=== PATIENT | male | born 1945 | race Caucasian/White ===

== ENCOUNTER 2023-03-17 09:54 | Observation (INO) ==
[2023-03-17] MEDS ORDERED: ACETAMINOPHEN 1,000 MG/100 ML VIAL IV STA (10:22)
[2023-03-17] MEDS ORDERED: SODIUM CHLORIDE 0.9% 1000ML 2,000 ML IV ONE (10:22)
--- NOTE | 2023-03-17 10:23 | Emergency Department Note ---
Impression & Plan Anaplasmosis, Thrombocytopenia, Lymphopenia, Elevated erythrocyte sedimentation rate, CRP elevated ED Provider Note NAME: BENJAMIN DARBY AGE: 77 SEX: M ARRIVES VIA: Walk-In INFORMANT: Patient ED PROVIDER(S): Osbaldo Melendez MD CHIEF COMPLAINT: Fever, weakness, body aches. PLAN: Disposition: Admit MEDICAL DECISION MAKING: The patient is a pleasant 77-year-old gentleman with a past medical history of hypertension, hyperlipidemia who presents to the emergency department via walk- in, coming by his for evaluation of generalized body aches, chills with b ilateral shoulder and hip pain involving over the past week which continued to worsen where today he could not stand or walk due to the pain and sensation of weakness. He denies any known tick bites but does acknowledge [place] and so. He denies any cough or congestion, chest pain or shortness of breath, GI or symptoms. On arrival the patient is uncomfortable, febrile to 38.2 with heart in the 90s and vital signs otherwise stable. He appears clinically dry. He demonstrates generalized weakness without focal weakness. He has increased pain in bilateral hips and shoulders with decreased pain with passive range of motion. Reflexes within normal limits. No clonus. EKG without overt acute ischemia. Chest x-ray negative for acute cardiopulmonary process. WBC within normal limits albeit with lymphopenia of 0.60. Platelets also low at 121 K without recent for comparison. Hemoglobin within normal limits. Chemistry without metabolic acidosis. AST mildly elevated 59, nonspecific. CPK 749 consistent with the patient clinically dry appearance. ESR and CRP are elevated at 25 and 7.5, respectively which are nonspecific. Procalcitonin is elevated at 1.7. TSH within normal limits. Lipase not elevated. UA without evidence of infection though with 1+ ketones consistent with patient's clinical dry appearance. Respiratory viral panel/[employer] was negative. Lyme screen was negative. Anaplasma and Babesia smear were negative with DNA testing pending. Given the patient's lymphopenia and thrombocytopenia in addition to mildly elevated AST suspicion is raised for anaplasmosis as no alternate infectious etiology is identified. Patient was treated with empiric ceftriaxone as well as IV doxycycline. Upon evaluation patient was feeling significantly improved after IV fluid hydration, APAP, dexamethasone and while he still had generalized weakness and pain he was able to stand which he was unable to do prior. Both he and his agree with plan for admission for further management. [facility] who will evaluate the patient for admission. Triage Nursing notes reviewed and agree them. Prior/outside medical records reviewed Vital Signs: reviewed Differential diagnosis: Viral syndrome, otitis, pharyngitis, pneumonia, influenza, meningitis, urinary tract infection, sepsis, bacteremia, as well as other pathologies. ER treatment provided: See below. Diagnostics interpreted by me: ECG: Normal sinus rhythm, 92 bpm, nonspecific intraventricular conduction delay, no overt ST elevation or depression, QTc 440, QRS 120. Cardiac Monitoring: An order for continuous cardiac monitoring was placed and demonstrated normal sinus rhythm, 92 bpm, no ectopy. Laboratory studies: See below Imaging studies: See below Consultation(s): Case was discussed with Dr. Braden, [facility], who will evaluate the patient for admission. HPI: The patient is a pleasant 77-year-old gentleman with a past medical history of hypertension, hyperlipidemia who presents emergency department via walk-in, coming by his for evaluation of generalized body aches, chills with bilateral shoulder and hip pain involving over the past week which continued to worsen where today he could not stand or walk due to the pain and sensation of weakness. He denies any known tick bites but does acknowledge that [place] and so. He denies any cough or congestion, chest pain or shortness of breath, GI or symptoms. ROS: See above HPI for pertinent positives & negatives. A total of 10 systems reviewed and were otherwise negative. VITALS:See Below PHYSICAL EXAMINATION: GENERAL: Awake, alert, fatigued-appearing, in no distress HENT: Normocephalic, atraumatic. Oropharynx with dry mucous membranes. EYES: Normal conjunctiva. Sclera non-icteric. EOMI. No nystamgus. PEARRL. NECK: Supple. No nuchal rigidity. FROM. No JVD. RESPIRATORY: Clear to auscultation. CARDIAC: Regular rate, normal rhythm. Extremities warm and well perfused. Pulses equal. ABDOMEN: Soft, non-distended. No tenderness to palpation. No rebound or guardin g. No masses. RECTAL: Deferred. MUSCULOSKELETAL: Chest examination reveals no tenderness. The back is symmetrical on inspection without obvious abnormality. There is no CVA tenderness to palpation. No joint edema or warmth. LOWER EXTREMITIES: Calves are equal size bilaterally and non-tender. No edema. No discoloration. NEURO: No sensory or motor deficits noted. Generalized weakness without focal weakness. He has increased pain in bilateral hips and shoulders with decreased pain with passive range of motion. Reflexes within normal limits. No clonus. SKIN: No rash or jaundice noted. Osbaldo Melendez MD Past Med/Surg History Medical History (Updated 03/17/23 @ 17:51 by Tyra Braden MD) Dyslipidemia Menieres disease Primary hypertension Family History (Updated 03/17/23 @ 17:43 by Tyra Braden MD) Father Coronary heart disease Hypertension Mother Dementia Hypertension Social History (Updated 03/17/23 @ 17:42 by Tyra Braden MD) Smoking Status: Never smoker Hx Alcohol Use: No Hx Substance Use: No Preferred Language: Sammarinese Feels Safe at Home: Yes Allergies Allergies Allergy/AdvReac Type Severity Reaction Status Date / Time No Known Allergies Allergy Verified 10/20/02 15:34 [id number] Allergy Unknown Uncoded 10/20/02 16:06 N Allergy Unknown Uncoded 10/20/02 16:06 NFA Allergy Unknown Uncoded 10/20/02 16:06 NO Allergy Unknown Uncoded 10/20/02 16:06 Home Meds Home Medications Medication Instructions Recorded Confirmed Simvastatin (Zocor) 40 mg PO QPM ##0 08/23/10 03/17/23 acetaminophen 500 mg tablet 1,000 mg PO DAILY PRN Pain 03/17/23 03/17/23 aspirin 81 mg tablet,delayed 81 mg PO DAILY 03/17/23 03/17/23 release (Adult Low Dose Aspirin) hydrochlorothiazide 25 mg tablet 25 mg PO DAILY 03/17/23 03/17/23 losartan 25 mg tablet 25 mg PO DAILY 03/17/23 03/17/23 meclizine 25 mg tablet 25 mg PO DAILY PRN dizziness 03/17/23 03/17/23 multivitamin 1 tab PO QAM 03/17/23 03/17/23 vit C 250 mg-vit E 90 mg-zinc 40 1 cap PO QPM 03/17/23 03/17/23 mg-copper 1 [id number] capsule (PreserVision AREDS-2) Results & Data (ED) Vital Signs Vital Signs - 24 hr 03/17/23 10:00 03/17/23 11:00 03/17/23 12:00 Temperature 38.2 C H Temperature Source Oral Pulse Rate 97 H Pulse Rate [Right Finger] 73 Respiratory Rate 20 16 Respiratory Effort / Characteristics Non-Labored Spontaneous Non-Labored Respiratory Depth Normal Normal Respiratory Pattern Regular Regular Blood Pressure 116/74 Blood Pressure [Right Arm] Blood Pressure Mean 88 Blood Pressure Mean [Right Arm] Blood Pressure Position Sitting Blood Pressure Position [Right Arm] Pulse Oximetry 96 95 Oxygen Delivery Method Room Air Room Air Room Air Sepsis Recent Fever Within 48 Hours Yes Sepsis New/Unexplained Change in Mental Status No Sepsis Action Taken by Nursing No Action Required 03/17/23 13:26 03/17/23 15:13 03/17/23 17:00 Temperature 37.0 C Temperature Source Oral Pulse Rate Pulse Rate [Right Finger] 73 64 62 Respiratory Rate 16 16 18 Respiratory Effort / Characteristics Non-Labored Respiratory Depth Normal Respiratory Pattern Regular Blood Pressure Blood Pressure [Right Arm] 121/67 123/75 121/75 Blood Pressure Mean Blood Pressure Mean [Right Arm] 85 91 90 Blood Pressure Position Blood Pressure Position [Right Arm] Lying Pulse Oximetry 95 93 94 Oxygen Delivery Method Room Air Room Air Room Air Sepsis Recent Fever Within 48 Hours Sepsis New/Unexplained Change in Mental Status Sepsis Action Taken by Nursing Laboratory Data Attestation: I reviewed the patient's lab results. 03/17/23 10:22 03/17/23 10:22 Lab Results 03/17/23 03/17/23 03/17/23 Range/Units 10:22 10:22 10:22 WBC 5.28 (4.8-10.8) K/ul RBC 4.53 L (4.70-6.10) M/uL Hgb 14.0 (14.0-18.0) g/dl Hct 39.6 L (42.0-52.0) % MCV 87.4 (80.0-100.0) fL MCH 30.9 (25.0-34.0) pg MCHC 35.4 (32.0-36.0) g/dL RDW Std Deviation 42.8 (36.4-46.3) fL RDW Coeff of Vivek 13.3 (11.5-14.5) % Plt Count 121 L (130-400) K/uL MPV 8.5 L (9.4-12.4) fL Immature Gran % (Auto) 0.8 % Neut % (Auto) 77.4 % Lymph % (Auto) 11.4 % Owen % (Auto) 9.8 % Eos % (Auto) 0.2 % Baso % (Auto) 0.4 % Neut # (Auto) 4.09 (1.40-6.50) K/uL Lymph # (Auto) 0.60 L (1.2-3.4) K/uL Owen # (Auto) 0.52 (0.11-0.59) K/uL Eos # (Auto) 0.01 (0-0.50) K/uL Baso # (Auto) 0.02 (0-0.2) K/uL Immature Gran # (Auto) 0.04 (0.01-0.20) K/uL ESR (0-20) mm/hr PT 11.5 (9.0-12.0) Seconds INR 1.1 (0.9-1.1) Sodium 137 (136-145) mmol/L Potassium 3.6 (3.5-5.1) mmol/L Chloride 100 (98-107) mmol/L Carbon Dioxide 29 (21-32) mmol/L Anion Gap 8 (3-11) BUN 27 H (6-23) mg/dl Creatinine 1.11 (0.6-1.4) mg/dl Est Cr Clr Drug Dosing Not Reportable Est GFR ( Amer) 74.9 ml/min Est GFR (Non-Af Amer) 64.6 ml/min BUN/Creatinine Ratio 24.3 H (10-20) Glucose 119 H (70-99(Fasting)) mg/dl Lactate (0.4-2.0) mmol/L Calcium 8.8 (8.6-10.3) mg/dl Phosphorus 2.8 (2.5-4.9) mg/dl Magnesium 2.2 (1.7-2.4) mg/dl Total Bilirubin 0.9 (0.2-1.0) mg/dl AST 59 H (13-39) U/L ALT 52 (7-52) U/L Alkaline Phosphatase 68 (34-104) U/L Total Creatine Kinase 749 H (30-223) U/L Troponin I High Sens 15.5 (0-20) pg/ml C-Reactive Protein 7.54 H (0-0.5) mg/dl Total Protein 7.0 (6.0-8.3) gm/dl Albumin 4.3 (3.4-5.0) gm/dl Globulin 2.7 (2.5-4.0) gm/dl Albumin/Globulin Ratio 1.6 (0.9-2) Lipase 13 (11-82) U/L Procalcitonin (0-0.5) ng/ml TSH (0.300-4.500) uIu/ml Urine Color Urine Appearance (Clear) Urine pH (4.5-7.5) Ur Specific Montague (1.000-1.030) Urine Protein (Negative) Urine Glucose (UA) (Negative) Urine Ketones (Negative) Urine Blood (Negative) Urine Nitrite (Negative) Urine Bilirubin (Negative) Urine Urobilinogen (Negative) Ur Leukocyte Esterase (Negative) Urine WBC (Auto) (0-5) /hpf Urine RBC (Auto) (0-4) /hpf U Hyaline Cast (Auto) (0-5) /lpf U Epithel Cells (Auto) (0-5) /lpf Urine Bacteria (Auto) (Negative) Adenovirus (PCR) (NotDetected) Anaplasma Smear Babesia Smear B. pertussis DNA (PCR) (NotDetected) B.parapertussis DNA PCR (NotDetected) Lyme Disease IgG Ab (Negative) Lyme Disease IgM Ab (Negative) C. pneumoniae DNA (PCR) (NotDetected) Coronavirus OC43 (PCR) (NotDetected) Coronavirus HKU1 (PCR) (NotDetected) Coronavirus 229E (PCR) (NotDetected) SARS-CoV-2 (PCR) (NotDetected) Coronavirus NL63 (PCR) (NotDetected) Human Metapneumovir PCR (NotDetected) Influenza Type A (PCR) (NotDetected) Influenza Type B (PCR) (NotDetected) M. pneumoniae (PCR) (NotDetected) Parainfluenza 1 (PCR) (NotDetected) Parainfluenza 2 (PCR) (NotDetected) Parainfluenza 3 (PCR) (NotDetected) Parainfluenza 4 (PCR) (NotDetected) RSV (PCR) (NotDetected) Entero/Rhino (PCR) (NotDetected) 03/17/23 03/17/23 03/17/23 Range/Units 10:22 10:22 10:22 WBC (4.8-10.8) K/ul RBC (4.70-6.10) M/uL Hgb (14.0-18.0) g/dl Hct (42.0-52.0) % MCV (80.0-100.0) fL MCH (25.0-34.0) pg MCHC (32.0-36.0) g/dL RDW Std Deviation (36.4-46.3) fL RDW Coeff of Vivek (11.5-14.5) % Plt Count (130-400) K/uL MPV (9.4-12.4) fL Immature Gran % (Auto) % Neut % (Auto) % Lymph % (Auto) % Owen % (Auto) % Eos % (Auto) % Baso % (Auto) % Neut # (Auto) (1.40-6.50) K/uL Lymph # (Auto) (1.2-3.4) K/uL Owen # (Auto) (0.11-0.59) K/uL Eos # (Auto) (0-0.50) K/uL Baso # (Auto) (0-0.2) K/uL Immature Gran # (Auto) (0.01-0.20) K/uL ESR (0-20) mm/hr PT (9.0-12.0) Seconds INR (0.9-1.1) Sodium (136-145) mmol/L Potassium (3.5-5.1) mmol/L Chloride (98-107) mmol/L Carbon Dioxide (21-32) mmol/L Anion Gap (3-11) BUN (6-23) mg/dl Creatinine (0.6-1.4) mg/dl Est Cr Clr Drug Dosing Est GFR ( Amer) ml/min Est GFR (Non-Af Amer) ml/min BUN/Creatinine Ratio (10-20) Glucose (70-99(Fasting)) mg/dl Lactate (0.4-2.0) mmol/L Calcium (8.6-10.3) mg/dl Phosphorus (2.5-4.9) mg/dl Magnesium (1.7-2.4) mg/dl Total Bilirubin (0.2-1.0) mg/dl AST (13-39) U/L ALT (7-52) U/L Alkaline Phosphatase (34-104) U/L Total Creatine Kinase (30-223) U/L Troponin I High Sens (0-20) pg/ml C-Reactive Protein (0-0.5) mg/dl Total Protein (6.0-8.3) gm/dl Albumin (3.4-5.0) gm/dl Globulin (2.5-4.0) gm/dl Albumin/Globulin Ratio (0.9-2) Lipase (11-82) U/L Procalcitonin (0-0.5) ng/ml TSH 2.256 (0.300-4.500) uIu/ml Urine Color Urine Appearance (Clear) Urine pH (4.5-7.5) Ur Specific Montague (1.000-1.030) Urine Protein (Negative) Urine Glucose (UA) (Negative) Urine Ketones (Negative) Urine Blood (Negative) Urine Nitrite (Negative) Urine Bilirubin (Negative) Urine Urobilinogen (Negative) Ur Leukocyte Esterase (Negative) Urine WBC (Auto) (0-5) /hpf Urine RBC (Auto) (0-4) /hpf U Hyaline Cast (Auto) (0-5) /lpf U Epithel Cells (Auto) (0-5) /lpf Urine Bacteria (Auto) (Negative) Adenovirus (PCR) (NotDetected) Anaplasma Smear See Comment Babesia Smear See Comment B. pertussis DNA (PCR) (NotDetected) B.parapertussis DNA PCR (NotDetected) Lyme Disease IgG Ab Negative (Negative) Lyme Disease IgM Ab Negative (Negative) C. pneumoniae DNA (PCR) (NotDetected) Coronavirus OC43 (PCR) (NotDetected) Coronavirus HKU1 (PCR) (NotDetected) Coronavirus 229E (PCR) (NotDetected) SARS-CoV-2 (PCR) (NotDetected) Coronavirus NL63 (PCR) (NotDetected) Human Metapneumovir PCR (NotDetected) Influenza Type A (PCR) (NotDetected) Influenza Type B (PCR) (NotDetected) M. pneumoniae (PCR) (NotDetected) Parainfluenza 1 (PCR) (NotDetected) Parainfluenza 2 (PCR) (NotDetected) Parainfluenza 3 (PCR) (NotDetected) Parainfluenza 4 (PCR) (NotDetected) RSV (PCR) (NotDetected) Entero/Rhino (PCR) (NotDetected) 03/17/23 03/17/23 03/17/23 Range/Units 10:22 10:22 15:00 WBC (4.8-10.8) K/ul RBC (4.70-6.10) M/uL Hgb (14.0-18.0) g/dl Hct (42.0-52.0) % MCV (80.0-100.0) fL MCH (25.0-34.0) pg MCHC (32.0-36.0) g/dL RDW Std Deviation (36.4-46.3) fL RDW Coeff of Vivek (11.5-14.5) % Plt Count (130-400) K/uL MPV (9.4-12.4) fL Immature Gran % (Auto) % Neut % (Auto) % Lymph % (Auto) % Owen % (Auto) % Eos % (Auto) % Baso % (Auto) % Neut # (Auto) (1.40-6.50) K/uL Lymph # (Auto) (1.2-3.4) K/uL Owen # (Auto) (0.11-0.59) K/uL Eos # (Auto) (0-0.50) K/uL Baso # (Auto) (0-0.2) K/uL Immature Gran # (Auto) (0.01-0.20) K/uL ESR 25 H (0-20) mm/hr PT (9.0-12.0) Seconds INR (0.9-1.1) Sodium (136-145) mmol/L Potassium (3.5-5.1) mmol/L Chloride (98-107) mmol/L Carbon Dioxide (21-32) mmol/L Anion Gap (3-11) BUN (6-23) mg/dl Creatinine (0.6-1.4) mg/dl Est Cr Clr Drug Dosing Est GFR ( Amer) ml/min Est GFR (Non-Af Amer) ml/min BUN/Creatinine Ratio (10-20) Glucose (70-99(Fasting)) mg/dl Lactate 0.9 (0.4-2.0) mmol/L Calcium (8.6-10.3) mg/dl Phosphorus (2.5-4.9) mg/dl Magnesium (1.7-2.4) mg/dl Total Bilirubin (0.2-1.0) mg/dl AST (13-39) U/L ALT (7-52) U/L Alkaline Phosphatase (34-104) U/L Total Creatine Kinase (30-223) U/L Troponin I High Sens (0-20) pg/ml C-Reactive Protein (0-0.5) mg/dl Total Protein (6.0-8.3) gm/dl Albumin (3.4-5.0) gm/dl Globulin (2.5-4.0) gm/dl Albumin/Globulin Ratio (0.9-2) Lipase (11-82) U/L Procalcitonin 1.73 H (0-0.5) ng/ml TSH (0.300-4.500) uIu/ml Urine Color Urine Appearance (Clear) Urine pH (4.5-7.5) Ur Specific Montague (1.000-1.030) Urine Protein (Negative) Urine Glucose (UA) (Negative) Urine Ketones (Negative) Urine Blood (Negative) Urine Nitrite (Negative) Urine Bilirubin (Negative) Urine Urobilinogen (Negative) Ur Leukocyte Esterase (Negative) Urine WBC (Auto) (0-5) /hpf Urine RBC (Auto) (0-4) /hpf U Hyaline Cast (Auto) (0-5) /lpf U Epithel Cells (Auto) (0-5) /lpf Urine Bacteria (Auto) (Negative) Adenovirus (PCR) (NotDetected) Anaplasma Smear Babesia Smear B. pertussis DNA (PCR) (NotDetected) B.parapertussis DNA PCR (NotDetected) Lyme Disease IgG Ab (Negative) Lyme Disease IgM Ab (Negative) C. pneumoniae DNA (PCR) (NotDetected) Coronavirus OC43 (PCR) (NotDetected) Coronavirus HKU1 (PCR) (NotDetected) Coronavirus 229E (PCR) (NotDetected) SARS-CoV-2 (PCR) (NotDetected) Coronavirus NL63 (PCR) (NotDetected) Human Metapneumovir PCR (NotDetected) Influenza Type A (PCR) (NotDetected) Influenza Type B (PCR) (NotDetected) M. pneumoniae (PCR) (NotDetected) Parainfluenza 1 (PCR) (NotDetected) Parainfluenza 2 (PCR) (NotDetected) Parainfluenza 3 (PCR) (NotDetected) Parainfluenza 4 (PCR) (NotDetected) RSV (PCR) (NotDetected) Entero/Rhino (PCR) (NotDetected) 03/17/23 03/17/23 Range/Units 16:00 Unknown WBC (4.8-10.8) K/ul RBC (4.70-6.10) M/uL Hgb (14.0-18.0) g/dl Hct (42.0-52.0) % MCV (80.0-100.0) fL MCH (25.0-34.0) pg MCHC (32.0-36.0) g/dL RDW Std Deviation (36.4-46.3) fL RDW Coeff of Vivek (11.5-14.5) % Plt Count (130-400) K/uL MPV (9.4-12.4) fL Immature Gran % (Auto) % Neut % (Auto) % Lymph % (Auto) % Owen % (Auto) % Eos % (Auto) % Baso % (Auto) % Neut # (Auto) (1.40-6.50) K/uL Lymph # (Auto) (1.2-3.4) K/uL Owen # (Auto) (0.11-0.59) K/uL Eos # (Auto) (0-0.50) K/uL Baso # (Auto) (0-0.2) K/uL Immature Gran # (Auto) (0.01-0.20) K/uL ESR (0-20) mm/hr PT (9.0-12.0) Seconds INR (0.9-1.1) Sodium (136-145) mmol/L Potassium (3.5-5.1) mmol/L Chloride (98-107) mmol/L Carbon Dioxide (21-32) mmol/L Anion Gap (3-11) BUN (6-23) mg/dl Creatinine (0.6-1.4) mg/dl Est Cr Clr Drug Dosing Est GFR ( Amer) ml/min Est GFR (Non-Af Amer) ml/min BUN/Creatinine Ratio (10-20) Glucose (70-99(Fasting)) mg/dl Lactate (0.4-2.0) mmol/L Calcium (8.6-10.3) mg/dl Phosphorus (2.5-4.9) mg/dl Magnesium (1.7-2.4) mg/dl Total Bilirubin (0.2-1.0) mg/dl AST (13-39) U/L ALT (7-52) U/L Alkaline Phosphatase (34-104) U/L Total Creatine Kinase (30-223) U/L Troponin I High Sens (0-20) pg/ml C-Reactive Protein (0-0.5) mg/dl Total Protein (6.0-8.3) gm/dl Albumin (3.4-5.0) gm/dl Globulin (2.5-4.0) gm/dl Albumin/Globulin Ratio (0.9-2) Lipase (11-82) U/L Procalcitonin (0-0.5) ng/ml TSH (0.300-4.500) uIu/ml Urine Color Yellow Urine Appearance Clear (Clear) Urine pH 5.5 (4.5-7.5) Ur Specific Montague 1.014 (1.000-1.030) Urine Protein Negative (Negative) Urine Glucose (UA) Negative (Negative) Urine Ketones 1+ H (Negative) Urine Blood Trace H (Negative) Urine Nitrite Negative (Negative) Urine Bilirubin Negative (Negative) Urine Urobilinogen Negative (Negative) Ur Leukocyte Esterase Negative (Negative) Urine WBC (Auto) 1-5 (0-5) /hpf Urine RBC (Auto) 0-4 (0-4) /hpf U Hyaline Cast (Auto) 0 (0-5) /lpf U Epithel Cells (Auto) 0-5 (0-5) /lpf Urine Bacteria (Auto) Negative (Negative) Adenovirus (PCR) Not Detected (NotDetected) Anaplasma Smear Babesia Smear B. pertussis DNA (PCR) Not Detected (NotDetected) B.parapertussis DNA PCR Not Detected (NotDetected) Lyme Disease IgG Ab (Negative) Lyme Disease IgM Ab (Negative) C. pneumoniae DNA (PCR) Not Detected (NotDetected) Coronavirus OC43 (PCR) Not Detected (NotDetected) Coronavirus HKU1 (PCR) Not Detected (NotDetected) Coronavirus 229E (PCR) Not Detected (NotDetected) SARS-CoV-2 (PCR) Not Detected (NotDetected) Coronavirus NL63 (PCR) Not Detected (NotDetected) Human Metapneumovir PCR Not Detected (NotDetected) Influenza Type A (PCR) Not Detected (NotDetected) Influenza Type B (PCR) Not Detected (NotDetected) M. pneumoniae (PCR) Not Detected (NotDetected) Parainfluenza 1 (PCR) Not Detected (NotDetected) Parainfluenza 2 (PCR) Not Detected (NotDetected) Parainfluenza 3 (PCR) Not Detected (NotDetected) Parainfluenza 4 (PCR) Not Detected (NotDetected) RSV (PCR) Not Detected (NotDetected) Entero/Rhino (PCR) Not Detected (NotDetected) Administered Medications Discontinued Medications Dexamethasone Sodium Phosphate (DexamethasonePf 10 Mg/Ml Vial) 10 mg IV NOW ONE Stop: 03/17/23 10:56 Last Admin: 03/17/23 11:13 Dose: 10 mg Documented By: KAY Sodium Chloride (Nss 1000ml) 2,000 mls @ 999 mls/hr IV .Q2H1M ONE Stop: 03/17/23 12:22 Last Infusion: 03/17/23 13:28 Dose: 0 mls/hr Documented By: Admin: 03/17/23 11:13 Dose: 999 mls/hr Documented By: KAY Acetaminophen (Ofirmev) 1,000 mg in 100 mls @ 400 mls/hr IV NOW STA Stop: 03/17/23 10:36 Last Infusion: 03/17/23 11:39 Dose: 0 mls/hr Documented By: Admin: 03/17/23 11:12 Dose: 400 mls/hr Documented By: KAY Ceftriaxone Sodium (Rocephin) 2,000 mg in 70 mls @ 140 mls/hr IV NOW STA Stop: 03/17/23 14:31 Last Infusion: 03/17/23 15:51 Dose: 0 mls/hr Documented By: Admin: 03/17/23 15:19 Dose: 140 mls/hr Documented By: EDITH Doxycycline Hyclate 100 mg/ (Dextrose) 110 mls @ 50 mls/hr IV NOW STA Stop: 03/17/23 16:13 Last Infusion: 03/17/23 17:48 Dose: 0 mls/hr Documented By: Admin: 03/17/23 15:52 Dose: 50 mls/hr Documented By: EDITH Imaging Data Radiologist's Impression: Chest X-Ray 03/17/23 10:21 XR chest 1V portable CLINICAL HISTORY: weakness TECHNIQUE: Single frontal radiograph of the chest was obtained. Comparison: None available at the time of this dictation. FINDINGS: No lines and tubes are seen. The cardiomediastinal silhouette is normal. Lungs are underinflated but clear. No evidence of pleural effusion or pneumothorax. IMPRESSION: No acute chest disease. ACT 112: Negative or not required by law. Electronically signed by: Pierre Mcgee M.D. 03/17/2023 10:42 AM Discharge Plan Visit Data Chief Complaint: Fever Stated Complaint: CHILLS;HOT;MUSCLE SORENESS; FEVER ED Provider: Osbaldo Melendez Discharge Problem: Anaplasmosis, Thrombocytopenia, Lymphopenia, Elevated erythrocyte sedimentation rate, CRP elevated Forms Stand Alone Forms: My [facility] Prescriptions Prescriptions: No Action Simvastatin (Zocor) 40 MG tablet 40 mg PO QPM Qty: 0 multivitamin [Multi-Vitamin] Tablet 1 tab PO QAM aspirin [Adult Low Dose Aspirin] 81 mg tablet,delayed release (DR/EC) 81 mg PO DAILY acetaminophen [Tylenol Ex Str Rapid Release] 500 mg Tablet 1,000 mg PO DAILY PRN (Reason: Pain) meclizine 25 mg tablet 25 mg PO DAILY PRN (Reason: dizziness) losartan 25 mg tablet 25 mg PO DAILY hydrochlorothiazide 25 mg tablet 25 mg PO DAILY PreserVision AREDS-2 250-90-40-1 mg Capsule 1 cap PO QPM Referrals Referrals: PCP,NO [Physician] -
--- NOTE | 2023-03-17 10:44 | XRay Report ---
XR chest 1V portable CLINICAL HISTORY: weakness TECHNIQUE: Single frontal radiograph of the chest was obtained. Comparison: None available at the time of this dictation. FINDINGS: No lines and tubes are seen. The cardiomediastinal silhouette is normal. Lungs are underinflated but clear. No evidence of pleural effusion or pneumothorax. IMPRESSION: No acute chest disease. ACT 112: Negative or not required by law. Electronically signed by: Pierre Mcgee M.D. 03/17/2023 10:42 AM
[2023-03-17 10:54] LABS: Basophils # (auto) 0.02 K/uL (0-0.2); Basophils % (auto) 0.4 %; Eosinophils # (auto) 0.01 K/uL (0-0.50); Eosinophils % (auto) 0.2 %; Hematocrit (blood only) 39.6 % (42.0-52.0); Immature Granulocytes # (auto) 0.04 K/uL (0.01-0.20); Immature Granulocytes % (auto) 0.8 %; Lymphocytes % (auto) 11.4 %; Mean Corpuscular Hemoglobin 30.9 pg (25.0-34.0); Mean Corpuscular Hgb Conc 35.4 g/dL (32.0-36.0); Mean Corpuscular Volume 87.4 fL (80.0-100.0); Mean Platelet Volume 8.5 fL (9.4-12.4); Monocytes # (auto) 0.52 K/uL (0.11-0.59); Monocytes % (auto) 9.8 %; Neutrophils # (auto) 4.09 K/uL (1.40-6.50); Neutrophils % (auto) 77.4 %; Platelet Count 121 K/uL (130-400); RDW Coefficient of Variation 13.3 % (11.5-14.5); RDW Standard Deviation 42.8 fL (36.4-46.3); Red Blood Count 4.53 M/uL (4.70-6.10); White Blood Count 5.28 K/ul (4.8-10.8)
[2023-03-17] MEDS ORDERED: dexAMETHasone**PF** 10 MG/ML VIAL IV ONE (10:55)
[2023-03-17 11:10] LABS: Alanine Aminotransferase 52 U/L (7-52); Albumin Globulin Ratio 1.6 (0.9-2); Albumin Level 4.3 gm/dl (3.4-5.0); Alkaline Phosphatase 68 U/L (34-104); Anion Gap 8 (3-11); Aspartate Aminotransferase 59 U/L (13-39); BUN Creatinine Ratio 24.3 (10-20); Bilirubin,Total 0.9 mg/dl (0.2-1.0); Blood Urea Nitrogen 27 mg/dl (6-23); Calcium 8.8 mg/dl (8.6-10.3); Carbon Dioxide 29 mmol/L (21-32); Chloride 100 mmol/L (98-107); Creatine Kinase 749 U/L (30-223); Est GFR (African American) 74.9 ml/min; Est GFR (Non-African American) 64.6 ml/min; Globulin 2.7 gm/dl (2.5-4.0); Glucose 119 mg/dl (70-99(Fasting)); Lipase 13 U/L (11-82); Magnesium 2.2 mg/dl (1.7-2.4); Phosphorus 2.8 mg/dl (2.5-4.9); Potassium 3.6 mmol/L (3.5-5.1); Sodium 137 mmol/L (136-145)
[2023-03-17 11:16] LABS: Troponin I High Sensitivity 15.5 pg/ml (0-20)
[2023-03-17 11:20] LABS: INR 1.1 (0.9-1.1); Prothrombin Time 11.5 Seconds (9.0-12.0)
[2023-03-17 11:40] LABS: Lyme Ab IgG w/WB Rflx Negative (Negative); Lyme Ab IgM w/WB Rflx Negative (Negative)
[2023-03-17 11:52] LABS: C Reactive Protein 7.54 mg/dl (0-0.5)
[2023-03-17 12:39] LABS: Adenovirus PCR Not Detected (NotDetected); Bordetella parapertussis PCR Not Detected (NotDetected); Bordetella pertussis PCR Not Detected (NotDetected); Chlamydia pneumoniae PCR Not Detected (NotDetected); Coronavirus 229E PCR Not Detected (NotDetected); Coronavirus CoV-2 (COVID19)PCR Not Detected (NotDetected); Coronavirus HKU1 PCR Not Detected (NotDetected); Coronavirus NL63 PCR Not Detected (NotDetected); Coronavirus OC43PCR Not Detected (NotDetected); Human Metapneumovirus PCR Not Detected (NotDetected); Influenza A PCR Not Detected (NotDetected); Influenza B PCR Not Detected (NotDetected); Mycoplasma pneumoniae PCR Not Detected (NotDetected); Parainfluenza Virus 1 PCR Not Detected (NotDetected); Parainfluenza Virus 2 PCR Not Detected (NotDetected); Parainfluenza Virus 3 PCR Not Detected (NotDetected); Parainfluenza Virus 4 PCR Not Detected (NotDetected); Respiratory Syncytial VirusPCR Not Detected (NotDetected); Rhinovirus/Enterovirus PCR Not Detected (NotDetected)
[2023-03-17] MEDS ORDERED: cefTRIAXone SODIUM 2,000 MG/70 ML BAG IV STA (14:02)
[2023-03-17] MEDS ORDERED: DOXYCYCLINE HYCLATE 100 MG in DEXTROSE 5% 100 ML IV STA (14:02)
[2023-03-17 16:12] LABS: Appearance Urine Clear (Clear); Bacteria Urine Automated Negative (Negative); Bilirubin Urine Negative (Negative); Blood Urine Trace (Negative); Cast Urine Automated 0 /lpf (0-5); Color Urine Yellow; Epithelial Cell Urine Auto 0-5 /lpf (0-5); Glucose Urine UA Negative (Negative); Ketones Urine 1+ (Negative); Leukocyte Esterase Urine Negative (Negative); Nitrite Urine Negative (Negative); Protein Urine Negative (Negative); RBC Urine Automated 0-4 /hpf (0-4); Specific Gravity Urine 1.014 (1.000-1.030); Urobilinogen Urine Negative (Negative); pH Urine 5.5 (4.5-7.5)
--- NOTE | 2023-03-17 17:39 | History & Physical Report ---
Date of Service March 17, 2023 Assessment & Plan (1) Systemic inflammatory response syndrome (SIRS) without organ dysfunction: Plan: at presentation HR > 90, T > 38 C suspected infectious etiology making this sepsis no e/o significant end organ damage (mild elevated of AST) ESR, CRP, CK, procalcitonin elevated CXR neg, UA clean f/u DNA for Anaplasma and Babesia, continue empiric coverage for now with Ceftriaxone and Doxycycline Tickborne panel neg thus far including smear for Anaplasma and Babesia if pt does not respond to therapy consider ID consult Present on Admission?: Yes (2) Weakness generalized: Plan: in part due to diffuse pain continue tx as above under SIRS continue supportive care, IVF, steroids if no improvement then consult to PT Present on Admission?: Yes (3) Thrombocytopenia: Plan: monitor, likely related to infection transfuse for plt < 15 without bleeding, < 50 with bleeding Present on Admission?: Yes (4) Dyslipidemia: Plan: continue statin, no indication to check a lipid panel Present on Admission?: Yes (5) Primary hypertension: Plan: currently well controlled, initially with soft BP that improved with IVF hold home regimen for now, resume when indicated home meds are HCTZ 25 mg daily, Losartan 25 mg daily Present on Admission?: Yes (6) Menieres disease: Plan: no complaints at this time meclizine prn Present on Admission?: Yes History of Present Illness Chief Complaint: fever, weakness, arthralgias Primary Care Provider: Larry James MD Ms. Bower is a 77 year old male with pmhx (per chart and ) of HTN, HLP, Meniere's dz, and periodic limb movement disorder. He presents with about a week of worsening diffuse arthralgias and weakness. He is found to have SIRS of susp ected infectious etiology. Hx is per pt and at bedside. Symptoms began about a week ago with f/c and sweats. He developed generalized weakness and diffuse arthralgias that are worst in the left knee and hip. Pain is so severe it is making ambulation difficult. Pain improves with rest and is worse with weight bearing and activity. He has not noticed any joint swelling or rash. He denies associated GARCIA, confusion, change in vision, dizziness, lightheadedness, neck pain/stiffness, focal weakness, numbness and tingling, n/v, cough, congestion, rhinorrhea, sore throat, CP, sob, dyspnea, abdominal pain, dysuria, and diarrhea. His does not notice any other changes. He has not noticed any insect bites or rash [place]. ED Course: vs notable for T 38.2, HR 97. b/w notable for plt 121, BUN 27, AST 59, remaining cbc/cmp unimpressive/wnl. TSH wnl. lactate 0.9. UA neg. CK elevated at 749, ESR 25, CRP 7.54. Procalcitonin 1.73 Tick born panel negative including smear for Anaplasmosis and Babesia however DNA for Anaplasma and Babesia is pending. CXR neg for acute pathology Pt given Dexamethasone, Azithromycin, Doxycycline, and IVF. Admitted to hospitalist service. Allergies Allergy/AdvReac Type Severity Reaction Status Date / Time No Known Allergies Allergy Verified 10/20/02 15:34 [id number] Allergy Unknown Uncoded 10/20/02 16:06 N Allergy Unknown Uncoded 10/20/02 16:06 NFA Allergy Unknown Uncoded 10/20/02 16:06 NO Allergy Unknown Uncoded 10/20/02 16:06 Home Medications Medication Instructions Recorded Confirmed Type Simvastatin (Zocor) 40 mg PO QPM ##0 08/23/10 03/17/23 History acetaminophen 500 mg tablet 1,000 mg PO DAILY PRN Pain 03/17/23 03/17/23 History aspirin 81 mg tablet,delayed 81 mg PO DAILY 03/17/23 03/17/23 History release (Adult Low Dose Aspirin) hydrochlorothiazide 25 mg tablet 25 mg PO DAILY 03/17/23 03/17/23 History losartan 25 mg tablet 25 mg PO DAILY 03/17/23 03/17/23 History meclizine 25 mg tablet 25 mg PO DAILY PRN dizziness 03/17/23 03/17/23 History multivitamin 1 tab PO QAM 03/17/23 03/17/23 History vit C 250 mg-vit E 90 mg-zinc 40 1 cap PO QPM 03/17/23 03/17/23 History mg-copper 1 [id number] capsule (PreserVision AREDS-2) Past Med/Surg History Medical History (Updated 03/17/23 @ 17:51 by Tyra Braden MD) Dyslipidemia Menieres disease Primary hypertension Family History (Updated 03/17/23 @ 17:43 by Tyra Braden MD) Father Coronary heart disease Hypertension Mother Dementia Hypertension Social History (Updated 03/17/23 @ 17:42 by Tyra Braden MD) Smoking Status: Never smoker Hx Alcohol Use: No Hx Substance Use: No Preferred Language: Panamanian Feels Safe at Home: Yes Review of Systems Review of Systems: All systems reviewed & are unremarkable except as noted in HPI & below Physical Exam Physical Exam: General: NAD, well nourished, non-toxic appearing Head: NC AT Eyes: PERRL, EOMI, anicteric sclera, no conjunctival injection Nose: normal, nares patent Mouth: dry Neck: supple, trachea midline CV: RRR S1 S2 Pulm: CTA b/l Abd/GI: + BS, soft, NT, ND, no guarding : no garay Ext: no pretibial edema, peripheral pulses intact MSK: normal bulk and tone Neuro: grossly intact, moving all 4 extremities symmetrically, alert, oriented, no focal deficit Psych: pleasant mood and affect Skin: visible skin is warm, dry, and without rash. Pt not fully undressed for exam. Results & Data Results & Data Vital Signs (Past 12 Hours) Vital Signs Temp Pulse Pulse Resp BP BP Pulse Ox 03/17/23 17:00 62 18 121/75 94 03/17/23 15:13 64 16 123/75 93 03/17/23 13:26 37.0 C 73 16 121/67 95 03/17/23 12:00 73 16 95 03/17/23 11:00 03/17/23 10:00 38.2 C H 97 H 20 116/74 96 O2 Del Method 03/17/23 17:00 Room Air 03/17/23 15:13 Room Air 03/17/23 13:26 Room Air 03/17/23 12:00 Room Air 03/17/23 11:00 Room Air 03/17/23 10:00 Room Air Laboratory Results Short CBC 03/17/23 Range/Units 10:22 WBC 5.28 (4.8-10.8) K/ul Hgb 14.0 (14.0-18.0) g/dl Hct 39.6 L (42.0-52.0) % Plt Count 121 L (130-400) K/uL BMP 03/17/23 10:22 Sodium 137 Potassium 3.6 Chloride 100 Carbon Dioxide 29 BUN 27 H Creatinine 1.11 Glucose 119 H Calcium 8.8 Cardiac Enzymes 03/17/23 Range/Units 10:22 Total Creatine Kinase 749 H (30-223) U/L Liver Function 03/17/23 Range/Units 10:22 Total Bilirubin 0.9 (0.2-1.0) mg/dl AST 59 H (13-39) U/L ALT 52 (7-52) U/L Alkaline Phosphatase 68 (34-104) U/L Albumin 4.3 (3.4-5.0) gm/dl Urine 03/17/23 Range/Units 16:00 Urine Color Yellow Urine Appearance Clear (Clear) Urine pH 5.5 (4.5-7.5) Ur Specific Everly 1.014 (1.000-1.030) Urine Protein Negative (Negative) Urine Glucose (UA) Negative (Negative) Diagnostic Findings Chest X-Ray 03/17/23 10:21 XR chest 1V portable FINDINGS: No lines and tubes are seen. The cardiomediastinal silhouette is normal. Lungs are underinflated but clear. No evidence of pleural effusion or pneumothorax. IMPRESSION: No acute chest disease. Electronically signed by: Pierre Mcgee M.D. 03/17/2023 10:42 AM Code Status & VTE Plan Code Status full
[2023-03-17] MEDS ORDERED: ALUMINUM/MAGNESIUM SUSP 30 ML UDC PO PRN (17:51)
[2023-03-17] MEDS ORDERED: ONDANSETRON INJ 2 MG/ML 2 ML VIAL IV PRN (17:51)
[2023-03-17] MEDS ORDERED: POLYETHYLENE (MIRALAX) 17 GM PACK PO PRN (17:51)
[2023-03-17] MEDS ORDERED: MAGNESIUM HYDROXIDE SUSP 30 ML UDC PO PRN (17:51)
[2023-03-17] MEDS ORDERED: ACETAMINOPHEN 325 MG TAB PO PRN (17:51)
[2023-03-17] MEDS ORDERED: MECLIZINE HCL 25 MG TAB PO PRN (17:54)
--- NOTE | 2023-03-17 17:57 | Electrocardiogram Report ---
Test Reason : Blood Pressure : / mmHG Vent. Rate : 092 BPM Atrial Rate : 092 BPM P-R Int : 176 ms QRS Dur : 120 ms QT Int : 356 ms P-R-T Axes : 065 000 046 degrees QTc Int : 440 ms Normal sinus rhythm Right bundle branch block Borderline ECG When compared with ECG of 15-MAR-2002 11:56, Questionable change in QRS axis Confirmed by Daniel Carrasco ([id number]) on 03/17/2023 5:56:28 PM Referred By: Confirmed By:Chuck Carrasco
[2023-03-17] MEDS ORDERED: SIMVASTATIN 40 MG TAB PO SCH (21:00)
[2023-03-17] MEDS ORDERED: ENOXAPARIN INJ 40 MG/0.4 ML SYR SQ SCH (21:00)
[2023-03-17] MEDS: DOXYCYCLINE HYCLATE 100 MG CAP PO SCH (21:39)
[2023-03-18 07:12] LABS: Basophils # (auto) 0.01 K/uL (0-0.2); Basophils % (auto) 0.2 %; Hematocrit (blood only) 36.6 % (42.0-52.0); Hemoglobin 13.3 g/dl (14.0-18.0); Immature Granulocytes # (auto) 0.03 K/uL (0.01-0.20); Immature Granulocytes % (auto) 0.5 %; Lymphocytes # (auto) 0.83 K/uL (1.2-3.4); Lymphocytes % (auto) 13.6 %; Mean Corpuscular Hemoglobin 31.2 pg (25.0-34.0); Mean Corpuscular Hgb Conc 36.3 g/dL (32.0-36.0); Mean Corpuscular Volume 85.9 fL (80.0-100.0); Mean Platelet Volume 8.5 fL (9.4-12.4); Monocytes # (auto) 0.63 K/uL (0.11-0.59); Monocytes % (auto) 10.3 %; Neutrophils # (auto) 4.62 K/uL (1.40-6.50); Neutrophils % (auto) 75.4 %; Platelet Count 118 K/uL (130-400); RDW Coefficient of Variation 13.1 % (11.5-14.5); RDW Standard Deviation 41.1 fL (36.4-46.3); Red Blood Count 4.26 M/uL (4.70-6.10); White Blood Count 6.12 K/ul (4.8-10.8)
[2023-03-18 07:38] LABS: Albumin Globulin Ratio 1.6 (0.9-2); Albumin Level 3.7 gm/dl (3.4-5.0); Bilirubin,Total 0.6 mg/dl (0.2-1.0); Calcium 8.2 mg/dl (8.6-10.3); Creatinine Clr Calc Pharmacy 90.6 ml/min; Est GFR (Non-African American) 89.7 ml/min; Globulin 2.3 gm/dl (2.5-4.0); Potassium 3.3 mmol/L (3.5-5.1)
[2023-03-18] MEDS: DOXYCYCLINE HYCLATE 100 MG CAP PO SCH (08:11)
[2023-03-18] MEDS ORDERED: ASPIRIN 81 MG ECTAB PO SCH (09:00)
[2023-03-18] MEDS ORDERED: POTASSIUM CHLORIDE CRTAB 20 MEQ TABCR PO STA (09:53)
--- NOTE | 2023-03-18 14:39 | Discharge Summary ---
Date of Service March 18, 2023 Admission HPI Per Admitting Provider Ms. Bower is a 77 year old male with pmhx (per chart and ) of HTN, HLP, Meniere's dz, and periodic limb movement disorder. He presents with about a week of worsening diffuse arthralgias and weakness. He is found to have SIRS of suspected infectious etiology. Hx is per pt and at bedside. Symptoms began about a week ago with f/c and sweats. He developed generalized weakness and diffuse arthralgias that are worst in the left knee and hip. Pain is so severe it is making ambulation difficult. Pain improves with rest and is worse with weight bearing and activity. He has not noticed any joint swelling or rash. He denies associated GARCIA, confusion, change in vision, dizziness, lightheadedness, neck pain/stiffness, focal weakness, numbness and tingling, n/v, cough, congestion, rhinorrhea, sore throat, CP, sob, dyspnea, abdominal pain, dysuria, and diarrhea. His does not notice any other changes. He has not noticed any insect bites or rash [place]. ED Course: vs notable for T 38.2, HR 97. b/w notable for plt 121, BUN 27, AST 59, remaining cbc/cmp unimpressive/wnl. TSH wnl. lactate 0.9. UA neg. CK elevated at 749, ESR 25, CRP 7.54. Procalcitonin 1.73 Tick born panel negative including smear for Anaplasmosis and Babesia however DNA for Anaplasma and Babesia is pending. CXR neg for acute pathology Pt given Dexamethasone, Azithromycin, Doxycycline, and IVF. Admitted to spitalist service. Admission Exam Per Admitting Provider General:NAD, well nourished, non-toxic appearing Head:NC AT Eyes: PERRL, EOMI, anicteric sclera, no conjunctival injection Nose:normal, nares patent Mouth:dry Neck:supple, trachea midline CV:RRR S1 S2 Pulm:CTA b/l Abd/GI:+ BS, soft, NT, ND, no guarding :no garay Ext:no pretibial edema, peripheral pulses intact MSK:normal bulk and tone Neuro:grossly intact, moving all 4 extremities symmetrically, alert, oriented, no focal deficit Psych:pleasant mood and affect Skin:visible skin is warm, dry, and without rash. Pt not fully undressed for exam. Principal Diagnosis SIRS without organ dysfunction Generalized weakness associated with diffuse arthralgia Discharge Exam GENERAL: Alert and oriented x3. NAD, on RA. HEENT: No pallor, no icterus. Pupils equal, round and reactive to light. Oral mucosa moist. NECK: No JVD, no neck masses. HEART: S1 and S2 heard. Regular rate and rhythm. No murmur, no gallop. RESPIRATORY SYSTEM: Normal AP diameter. No accessory muscle use. No wheezing, no crackles. ABDOMEN: Soft, bowel sounds present, nontender, no distention. CENTRAL NERVOUS SYSTEM: No facial droop. Speech is clear. Obeys simple commands. Moves extremities. EXTREMITIES: No edema, no erythema seen. Discharge Data Allergies Allergy/AdvReac Type Severity Reaction Status Date / Time No Known Allergies Allergy Verified 10/20/02 15:34 Consultations 03/17/23 16:24 ED Decision to Admit Stat Hospital Course (1) Systemic inflammatory response syndrome (SIRS) without organ dysfunction: Per prior attending w/ addendum: 1. SIRS without organ dysfunction: Possible anaplasmosis: at presentation HR > 90, T > 38 C suspected infectious etiology making this sepsis no e/o significant end organ damage (mild elevated of AST) ESR, CRP, CK, procalcitonin elevated CXR neg, UA clean f/u DNA for Anaplasma and Babesia, continue empiric coverage for now with Ceftriaxone and Doxycycline Tickborne panel neg thus far including smear for Anaplasma and Babesia if pt does not respond to therapy consider ID consult (2) Weakness generalized: in part due to diffuse pain continue tx as above under SIRS continue supportive care, IVF, steroids if no improvement then consult to PT (3) Thrombocytopenia: monitor, likely related to infection transfuse for plt < 15 without bleeding, < 50 with bleeding (4) Dyslipidemia: continue statin, no indication to check a lipid panel (5) Primary hypertension: currently well controlled, initially with soft BP that improved with IVF hold home regimen for now, resume when indicated home meds are HCTZ 25 mg daily, Losartan 25 mg daily (6) Menieres disease: no complaints at this time meclizine prn Plan Addendum: Patient reports feeling better, reports improvement in his generalized weakness and improvement in his generalized arthralgia. Patient is hemodynamically stable, no further fever, would like to go home. Discussed with the patient that his all the tickborne serology tests are not yet out, patient to follow-up with PCP office for the final results on tickborne serology, until then he is to continue doxycycline. Patient verbalized understanding. Patient evaluated by PT/OT, cleared for home. By CMS guidelines, a determination that the admission or continued stay is not medically necessary has been made by a member of the Utilization Review committee and a physician for this hospital stay. Therefore, a Code 44 will be completed and the inpatient admission will be changed to outpatient. Patient being discharged home with following instruction at the point of discharge: Follow-up with your primary care physician within a week time and likely you will need labs CBC/CMP/magnesium/phosphorus. You underwent tickborne serology test while in hospital, most of the tests are negative, certain DNA PCR test are pending. As discussed at the bedside, follow-up with your PCP office for the final results on this test. You will be discharged on doxycycline to complete 10-day course, you can discontinue antibiotic once the test results are final and negative. Take your medications as prescribed. Please make sure that you are able to get your medications today by calling your pharmacy before you leave the hospital so that your treatment continuity is not broken. Home Health Attestation I certify that this patient is under my care and that I, or a physicians assistant film editor working with me, had a face to-face encounter that meets the home health [id number] encounter requirements with this patient. The encounter with the patient was in whole, or in part, for the following medical condition, which is the primary reason for home health care (list medical condition): I certify that, based on my findings, the following services are medically necessary home health services: My clinical findings support the need for the above services because: Further, I certify that my clinical findings support that this patient is homebound (i.e. absences from home require considerable and taxing effort and are for medical reasons or scientologist services or infrequently or of short duration when for other reasons) because: Certification for Home Health Services: Based on the above findings, I certify that this patient is confined to the home and needs intermittent fdc care, physical therapy and/or speech therapy or continues to need occupational therapy. The patient is under my care, and I have initiated the establishment of the plan of care. This patient will be followed by a physician who will periodically review the plan of care. Total Time Total Time Spent Total Time Spent (In Minutes): 45 Discharge Plan Discharge Items Patient Disposition: Home - Self-Care Reason For Visit: SIRS Discharge Diagnosis: SIRS without organ dysfunction Generalized weakness associated with diffuse arthralgia Activity: Resume your previous activity Non-emergency contact: Primary Care Provider Call non-emergency contact if: you have any medication questions, your symptoms worsen and your temperature is above 101 Follow-up/Referrals: Larry James MD [Primary Care Provider] - Diet: Regular Addtl Attending Provider Instructions: Follow-up with your primary care physician within a week time and likely you will need labs CBC/CMP/magnesium/phosphorus. You underwent tickborne serology test while in hospital, most of the tests are negative, certain DNA PCR test are pending. As discussed at the bedside, follow-up with your PCP office for the final results on this test. You will be discharged on doxycycline to complete 10-day course, you can discontinue antibiotic once the test results are final and negative. Take your medications as prescribed. Please make sure that you are able to get your medications today by calling your pharmacy before you leave the hospital so that your treatment continuity is not broken. Pending Studies at Discharge: Yes Stand-Alone Forms: My [facility] [employer], Smoking Cessation Medications and DC Order Prescriptions: New doxycycline hyclate 100 mg Capsule 100 mg PO BID 9 Days Qty: 18 0RF Continued Simvastatin (Zocor) 40 MG tablet 40 mg PO QPM Qty: 0 multivitamin [Multi-Vitamin] Tablet 1 tab PO QAM aspirin [Adult Low Dose Aspirin] 81 mg tablet,delayed release (DR/EC) 81 mg PO DAILY acetaminophen [Tylenol Ex Str Rapid Release] 500 mg Tablet 1,000 mg PO DAILY PRN (Reason: Pain) meclizine 25 mg tablet 25 mg PO DAILY PRN (Reason: dizziness) losartan 25 mg tablet 25 mg PO DAILY hydrochlorothiazide 25 mg tablet 25 mg PO DAILY PreserVision AREDS-2 250-90-40-1 mg Capsule 1 cap PO QPM Discharge Orders: Discharge Order (Routine); Ordered 03/18/23 Ordered By: Huey Carrizales Admission Data Admit Date/Time: 03/17/23 17:52 Attending Provider: Tyra Braden Admit Provider: Tyra Braden Primary Care Provider: Larry James Other Providers: Tyra Braden
[2023-03-20 01:52] LABS: Babesia microti DNA Not Detected (Not Detected)
[2023-03-22 15:07] LABS: Ehrlichia chaff DNA Bld Negative (Negative)
--- NOTE | 2023-03-23 09:08 | Communication Note ---
Date of Service: March 18, 2023 Code 44 attestation: The chart of Al Bower, 77-year old male reviewed, medications, EKG and imaging studies reviewed. He was appropriately managed by the attending physician and was sent home in a reasonable and and stable medical condition. By CMS guidelines, a determination that the admission or continued stay is not medically necessary has been made by a member of the UR committee and a physician for this hospital stay, therefore a Code 44 will be completed and the Inpatient admission will be changed to outpatient. Dr. Krystina Lundberg Member UR Committee
== END 2023-03-18 15:35 | disposition home or self-care (01) | DRG 872 ==
LOC: ED 09:54 → 3E 17:52 → INTOOBSV 17:52 → 3E 19:35